=== PATIENT | female | born 1990 | race Native Hawaiian/Other Pacific Islander ===

== ENCOUNTER 2022-10-08 06:09 | Inpatient (IN) | payer MEDICAID, OTHER ==
[~2022-10-08] VITALS: Ht 146 cm; Wt 76.9 kg
[2022-10-08] VITALS (36 sets, daily range): BP systolic 96–140; BP diastolic 57–94
[2022-10-08] MEDS ORDERED: LIDOCAINE/EPI 2% 1:200,00 (XYLOCAINE) 10 ML VIAL INJ PRN (07:45)
[2022-10-08] MEDS ORDERED: MINERAL OIL 30 ML UDC TOP PRN (07:45)
[2022-10-08 07:55] LABS: BASOPHILS # (AUTO) 0.1 10^3/uL (0.0-0.1); BASOPHILS % (AUTO) 0 % (0-10); EOSINOPHILS # (AUTO) 0.2 10^3/uL (0.0-0.3); EOSINOPHILS % (AUTO) 2 % (0-10); HEMATOCRIT 38 % (35-52); LYMPHOCYTES # (AUTO) 2.1 10^3/uL (1.0-4.0); LYMPHOCYTES % (AUTO) 17 % (12-44); MEAN CORPUSCULAR HEMOGLOBIN 30 pg (25-34); MEAN CORPUSCULAR HGB CONC 34 g/dL (32-36); MEAN CORPUSCULAR VOLUME 88 fL (80-99); MEAN PLATELET VOLUME 9.4 fL (9.0-12.2); MONOCYTES # (AUTO) 0.8 10^3/uL (0.0-1.0); MONOCYTES % (AUTO) 6 % (0-12); NEUTROPHILS # (AUTO) 8.9 10^3/uL (1.8-7.8); NEUTROPHILS % (AUTO) 73 % (42-75); PLATELET COUNT 311 10^3/uL (130-400); WHITE BLOOD COUNT 12.2 10^3/uL (4.3-11.0)
[2022-10-08] MEDS ORDERED: D5 NS 1000 ML IV SOLUTION 1,000 ML IV SCH (08:00)
[2022-10-08] MEDS ORDERED: FAMO-144 PO (08:14)
[2022-10-08] MEDS ORDERED: D5 LR IV SOLUTION 1,000 ML IV SCH (08:15)
[2022-10-08] MEDS ORDERED: METF500S7 PO (08:18)
[2022-10-08] MEDS ORDERED: OXYTOCIN PRE-MIX DRIP 500 ML IV SCH ×2 (09:30→16:00)
--- NOTE | 2022-10-08 10:21 | History & Physical-OB ---
OB - Chief Complaint & HPI Date/Time Date of Admission: Date of Admission: Oct 08, 2022 at 06:09 Date seen by a Provider: Oct 08, 2022 Time Seen by a Provider: 08:45 Chief Complaint/History OB-Reason for Admission/Chief: Induction of Labor (GDM) Hx : 5 Hx Para: 3 Expected Date of Delivery: Oct 15, 2022 Gestational Age in Weeks: 39 Gestational Age in Days: 0 Indication for induction: other (Moderately controlled GDM, on Metformin) History of Labs O+, ab neg Rub NON IMM RPR/HIV/HepB/C NR Abnormal GTT GBS Neg Allergies and Home Medications Allergies Coded Allergies: No Known Drug Allergies (Unverified , 10/08/22) Patient Home Medication List Home Medication List Reviewed: Yes Famotidine (Acid Silo Erector (FAMOTIDINE)) 10 Mg Tablet, 10 MG PO BID, (Reported) Entered as Reported by: LOGAN MONIQUE on 10/08/22813 Last Action: New Order Metformin HCl (Metformin HCl) 500 Mg/5 Ml Solution, 500 MG PO DAILY, (Reported) Entered as Reported by: LOGAN MONIQUE on 10/08/22817 Last Action: New Order OB - History Hx of Present Care: Yes Ultrasounds: Normal mid trimester US, Other (Normal growth scans and NSTs prior to IOL) Obstetrical Complications: Gestational Diabetes Information Induced Hypertension: No Maternal Gestational Diabetes: Yes Hemorrhage: No Obstetrical History Hx : 5 Hx # Term Pregnancies: 3 Number of Living Children: 3 Patient Past Medical History GDM Social History/Family History Alcohol Use: Denies Use Recreational Drug Use: No Smoking Cessation: Never smoker 2nd Hand Smoke Exposure: No Immunizations Influenza Vaccine Up-to-Date: No; Not Current Hepatitis A: No Hepatitis B: No Tetanus Booster (TDap): Less than 5yrs (08/20/23) Rubella: not immune RPR/VDRL: Negative GBS Status: Negative HBsAG: Negative OB - Admission Exam Physical Exam Vitals: Vital Signs 10/08/22 07:30 Temp 37.4 Pulse 108 Resp 18 Pulse Ox 98 O2 Delivery Room Air HEENT: NCAT Heart: Rhythm Normal Lungs: Clear Abdomen: Gravid Cervical Dilatation: 5cm Effacement: 75% Station: -2 Membranes: Intact Heart Rate: 120's Accelerations: Accelerations Present Decelerations: No Decelerations Contractions on Admission: < 5 Minutes Apart Intensity: Moderate Christiansen Scoring Tool (Modified) Dilation (cm): 3-4cm (2) Effacement (%): 51-79% (2) Descent/Station: -2 (1) Cervix Consistency: Soft (2) Cervix Position: Middle/Mid-Position (1) Add 1 point for: Each previous vaginal delivery (1) Labs Laboratory Tests Test 10/08/22 07:20 Range/Units White Blood Count 12.2 H 4.3-11.0 10^3/uL Red Blood Count 4.37 3.80-5.11 10^6/uL Hemoglobin 13.0 11.5-16.0 g/dL Hematocrit 38 35-52 % Mean Corpuscular Volume 88 80-99 fL Mean Corpuscular Hemoglobin 30 25-34 pg Mean Corpuscular Hemoglobin Concent 34 32-36 g/dL Red Cell Distribution Width 14.2 10.0-14.5 % Platelet Count 311 130-400 10^3/uL Mean Platelet Volume 9.4 9.0-12.2 fL Immature Granulocyte % (Auto) 2 % Neutrophils (%) (Auto) 73 42-75 % Lymphocytes (%) (Auto) 17 12-44 % Monocytes (%) (Auto) 6 0-12 % Eosinophils (%) (Auto) 2 0-10 % Basophils (%) (Auto) 0 0-10 % Neutrophils # (Auto) 8.9 H 1.8-7.8 10^3/uL Lymphocytes # (Auto) 2.1 1.0-4.0 10^3/uL Monocytes # (Auto) 0.8 0.0-1.0 10^3/uL Eosinophils # (Auto) 0.2 0.0-0.3 10^3/uL Basophils # (Auto) 0.1 0.0-0.1 10^3/uL Immature Granulocyte # (Auto) 0.2 H 0.0-0.1 10^3/uL OB - Assessment/Plan/Diagnosis Assessment Assessment: induction of labor Admission Dx Third Trimester GDM on oral medication 39 week gestation Admission Status: Inpatient Order (span 2 midnights) Reason for Inpatient Admission: Labor and post care Plan Other Plan 32 yo @ 39.0 wga here for IOL for GDM on oral medications Plan - AROM - Desires natural delivery, IV pain medication - GBS neg - Monitor blood sugars throughout active labor - Augmentation with pitocin NAKUL TONY MD Oct 08, 2022 10:21
[2022-10-08] MEDS ORDERED: fentaNYL INJ 100 MCG/2 ML AMP IVP ONE (12:45)
[2022-10-08] MEDS ORDERED: LIDOCAINE 1% INJ 10 ML VIAL INJ ONE (13:45)
[2022-10-08] MEDS ORDERED: CATHETER FLUSH 10 ML SYR IV SCH ×2 (14:00→22:00)
--- NOTE | 2022-10-08 15:51 | OB Labor & Delivery Record ---
Vag Delivery Note Vag Delivery Note Date of Delivery: 10/08/22 Preoperative Diagnosis: Onur Villegas is a (32 /Para 5/3 ,Gestational Age (wks)39.0 here for IOL for GDM Postoperative Diagnosis: Same Surgeon: NAKUL TONY MD Rim Fire Charger Operator: None Anesthesia: Natural Delivery Type: @ 1500 Findings: Viable male infant, apgars 8/9, weight 6#12, 3070 grams Lacerations: None Intact placenta with 3 vessel cord. No nuchal cord, body cord or shoulder dystocia Estimated Blood Loss: 200 ml Complications: None Condition: Stable Description of Procedure: The patient is a 32 year old female who presented for IOL due to GDM. She was admitted and informed consent was obtained. Her labor course was remarkable for augmentation for pitocin and low vaccum extraction. She progressed to complete dilatation and began to push. She was then set up for delivery. The 's head was delivered atraumatically in the VIELKA position after low vacuum extraction, vacuum applied at 1500 and head delivered at 1500, no pop offs. The shoulders and remainder of the infant's body were then delivered without difficulty. Upon delivery, the infant was vigorous and placed on maternal chest and the mouth and nares were bulb suctioned. After a delay of 2 mins cord was doubly clamped and cut by friend of mother and the remained on maternal chest. An intact placenta with 3-vessel cord delivered via Nagi and there was found to be minimal bleeding.~ Vigorous fundal massage was performed and the fundus was found to be firm. IV oxytocin was given. Examination of the vagina and perineum revealed no lacerations that require repair. Following the repair, sponge, instrument and needle counts were correct. Mom and baby were both in stable condition in the labor suite. Vitals - Labs Vital Signs - I&O Vital Signs Date Time Temp Pulse Resp B/P (MAP) Pulse Ox O2 Delivery O2 Flow Rate FiO2 10/08/22 11:30 98 18 106/61 (76) Room Air 10/08/22 11:15 37.2 92 18 110/72 (85) Room Air 10/08/22 11:00 92 18 110/72 (85) Room Air 10/08/22 10:45 100 112/67 (82) Room Air 10/08/22 10:30 96 104/60 (75) Room Air 10/08/22 10:15 110 18 115/68 (84) Room Air 10/08/22 10:00 96 18 112/73 (86) Room Air 10/08/22 09:45 109 18 111/77 (88) Room Air 10/08/22 09:30 96 18 112/73 (86) Room Air 10/08/22 09:00 100 18 108/61 (77) Room Air 10/08/22 07:30 37.4 108 18 98 Room Air Labs Laboratory Tests 10/08/22 07:20: White Blood Count 12.2H, Red Blood Count 4.37, Hemoglobin 13.0, Hematocrit 38, Mean Corpuscular Volume 88, Mean Corpuscular Hemoglobin 30, Mean Corpuscular Hemoglobin Concent 34, Red Cell Distribution Width 14.2, Platelet Count 311, Mean Platelet Volume 9.4, Immature Granulocyte % (Auto) 2, Neutrophils (%) (Auto) 73, Lymphocytes (%) (Auto) 17, Monocytes (%) (Auto) 6, Eosinophils (%) (Auto) 2, Basophils (%) (Auto) 0, Neutrophils # (Auto) 8.9H, Lymphocytes # (Au to) 2.1, Monocytes # (Auto) 0.8, Eosinophils # (Auto) 0.2, Basophils # (Auto) 0.1, Immature Granulocyte # (Auto) 0.2H 10/08/22 10:59: Glucometer 150H 10/08/22 12:08: Glucometer 153H 10/08/22 13:33: Glucometer 131H NAKUL TONY MD Oct 08, 2022 15:51
[2022-10-08] MEDS ORDERED: BENZOCAINE/MENTHOL (DERMOPLAST) 56 ML CAN TP PRN (16:00)
[2022-10-08] MEDS ORDERED: MEASLES,MUMPS,RUBELLA 1 EA INJ SQ ONE (16:00)
[2022-10-08] MEDS ORDERED: WITCH HAZEL(TUCKS) 40 EA JAR TOP PRN (16:00)
[2022-10-08] MEDS: ACETAMINOPHEN 500 MG TAB (TYLENOL) PO SCH ×2 (16:27→22:48)
[2022-10-08] MEDS: IBUPROFEN 600 MG (MOTRIN) TAB PO SCH ×2 (16:27→22:47)
[2022-10-08] MEDS: METHYLERGONOVINE 0.2 MG (MEHTERGINE) TAB PO SCH ×2 (17:18→22:47)
[2022-10-08] MEDS: DOCUSATE SODIUM 100 MG (COLACE) CAP PO SCH (22:47)
[2022-10-09 01:00] VITALS: BP 94/60
[2022-10-09 04:57] VITALS: BP 103/68
[2022-10-09] MEDS: IBUPROFEN 600 MG (MOTRIN) TAB PO SCH ×3 (04:57→16:50)
[2022-10-09] MEDS: ACETAMINOPHEN 500 MG TAB (TYLENOL) PO SCH ×3 (04:57→16:50)
[2022-10-09 05:41] LABS: BASOPHILS # (AUTO) 0.1 10^3/uL (0.0-0.1); BASOPHILS % (AUTO) 1 % (0-10); EOSINOPHILS # (AUTO) 0.2 10^3/uL (0.0-0.3); EOSINOPHILS % (AUTO) 1 % (0-10); HEMATOCRIT 32 % (35-52); HEMOGLOBIN 10.6 g/dL (11.5-16.0); LYMPHOCYTES # (AUTO) 2.4 10^3/uL (1.0-4.0); LYMPHOCYTES % (AUTO) 16 % (12-44); MEAN CORPUSCULAR HEMOGLOBIN 30 pg (25-34); MEAN CORPUSCULAR HGB CONC 33 g/dL (32-36); MEAN CORPUSCULAR VOLUME 90 fL (80-99); MEAN PLATELET VOLUME 9.3 fL (9.0-12.2); MONOCYTES # (AUTO) 0.9 10^3/uL (0.0-1.0); MONOCYTES % (AUTO) 6 % (0-12); NEUTROPHILS # (AUTO) 11.2 10^3/uL (1.8-7.8); NEUTROPHILS % (AUTO) 75 % (42-75); PLATELET COUNT 271 10^3/uL (130-400); WHITE BLOOD COUNT 14.9 10^3/uL (4.3-11.0)
[2022-10-09] MEDS ORDERED: PRENATAL VITAMIN 1 EA TAB PO SCH (07:00)
[2022-10-09 07:52] VITALS: BP 104/52
[2022-10-09] MEDS: METHYLERGONOVINE 0.2 MG (MEHTERGINE) TAB PO SCH (09:14)
[2022-10-09] MEDS: DOCUSATE SODIUM 100 MG (COLACE) CAP PO SCH (09:14)
[2022-10-09 12:46] VITALS: BP 101/55
[2022-10-09 16:48] VITALS: BP 98/62
--- NOTE | 2022-10-09 17:27 | Discharge Summary ---
Diagnosis/Chief Complaint Date of Admission Oct 08, 2022 at 06:09 Date of Discharge 10/09/2022 Admission Diagnosis Admission Diagnosis Third Trimester 39 weeks gestation GDM Discharge Diagnosis Term Anemia due to acute blood loss 39 completed weeks gestation GDM Post Hemorrhage Discharge Summary-Simple/Stand Procedures Discharge Physical Examination Allergies: Coded Allergies: No Known Drug Allergies (Unverified , 10/08/22) Vitals & I&Os Vital Sign - Last 12Hours Date Time Temp Pulse Resp B/P (MAP) Pulse Ox O2 Delivery O2 Flow Rate FiO2 10/09/22 16:48 36.2 71 16 98/62 (74) 99 Room Air Intake and Output 10/09/22 00:00 Intake Total 500 ml Balance 500 ml General Appearance: Alert, Oriented X3, Cooperative, No Acute Distress HEENT: Mucous Memb Moist/[place] Respiratory: Clear to Auscultation, Normal Air Movement Cardiovascular: Regular Rate, No Murmurs Abdominal: Normal Bowel Sounds, Soft, No Tenderness, Other (Fundus firm and below umbilicus) Extremities: No Edema, No Tenderness/Swelling Neuro: Normal Speech Psych/Mental Status: Mental Status NL, Mood NL Hospital Course See final discharge diagnosis. Discussion & Recommendations 32 yo G5 now P4 delivered term male infant via low vacuum assisted vaginal delivery @ 39 wks. Discharge Condition at discharge stable Instructions to patient/family Please see electronic discharge instructions given to patient. Discharge Medications Reviewed and agree with Discharge Medication list on patient's Discharge Instruction sheet Copy Copies To 1: NAKUL TONY MD, HOLLY R MD Oct 09, 2022 17:27
[2022-10-09] MEDS ORDERED: IBUP-844 PO (17:29)
[2022-10-09] MEDS ORDERED: PNV1TABL67 PO (17:29)
[2022-10-09] MEDS ORDERED: DOCU100C37 PO (17:29)
--- NOTE | 2022-10-09 17:30 | Discharge Summary ---
Discharge Inst-Women's Serv Depart Medications New, Converted or Re-Newed RX: Transmitted to Pharmacy New Medications: Docusate Sodium (Docusate Sodium) 100 Mg Capsule 100 MG PO BID, #28 CAP Ibuprofen (Ibu) 600 Mg Tablet 600 MG PO Q6H, #30 TAB Pnv with Ca,No.72/Iron/FA (Pnv Plus Multivit Tab) 27 Mg Iron-1 Mg Tablet 1 EA PO DAILY@0700, #30 TAB Discontinued Medications: Famotidine (Acid Insurance Legal Assistant (FAMOTIDINE)) 10 Mg Tablet 10 MG PO BID, TAB Metformin HCl (Metformin HCl) 500 Mg/5 Ml Solution 500 MG PO DAILY, EA Follow Up/Instructions Goal/Follow Up: 6 week f.u with [facility] Activity Activity: Activity as Tolerated Driving Instructions: You May Drive NO SMOKING: NO SMOKING Nothing Inside Vagina: No Douching, No [place], No Tampons Diet Discharge Diet: No Restrictions Symptoms to Report to DrPooja: Bleeding Excessive, Pain Increased, Fever Over 101 Degrees F NAKUL TONY MD Oct 09, 2022 17:30
[2022-10-09] MEDS ORDERED: FLU QUADRIvalent (6 months+) 60 mcg/0.5 ml 2022-23 (Fluzone) IM ONE (18:00)
[2022-10-09] MEDS ORDERED: MEASLES,MUMPS,RUBELLA 1 EA INJ ONE (18:04)
== END 2022-10-09 19:37 | disposition home or self-care (01) | DRG 806 ==
LOC: LDRP 06:09
PROVIDERS: ADMIT Family Medicine; ATTEND Family Medicine
PROC: 10D07Z6 Extraction of Products of Conception, Vacuum, Via Natural or Artificial Opening (ICD-10-PCS; principal; 2022-10-08)
PROC: 10907ZC Drainage of Amniotic Fluid, Therapeutic from Products of Conception, Via Natural or Artificial Opening (ICD-10-PCS; 2022-10-08)
DX: O24.425 Gestational diabetes mellitus in childbirth, controlled by oral hypoglycemic drugs (principal); D62 Acute posthemorrhagic anemia; Z37.0 Single live birth; O72.1 Other immediate postpartum hemorrhage; Z3A.39 39 weeks gestation of pregnancy; O90.81 Anemia of the puerperium; Z79.84 Long term (current) use of oral hypoglycemic drugs; Z23 Encounter for immunization; Z28.310 Unvaccinated for COVID-19
CPT/HCPCS: 36415; 82947; 85025; 86780; 86850; 86900; 86901; 90686; 90707